=== PATIENT | female | born 1950 | race Caucasian/White ===

== ENCOUNTER → 2019-10-06 | Outpatient (CLI) | payer MEDICARE ==
--- NOTE | 2019-10-06 17:05 | KCIC ---
MR of the left shoulder HISTORY: Left shoulder pain. Progressive for 4 months. TECHNIQUE: Routine multiplanar sequences are obtained. FINDINGS: The acromioclavicular joint is intact. Rotator cuff tendinosis. No measurable rotator cuff defect or rupture although there is some ill-definition of articular and bursal tissue suggesting fraying. Subscapularis tendon intact. No significant subdeltoid bursal fluid. No significant glenohumeral joint effusion. Glenohumeral joint DJD with chondromalacia. Full-thickness cartilage loss at the inferior glenoid measures about 6 mm. Coronal series 6, image 9. Sublabral foramen at the anterosuperior labrum with a thick cordlike middle glenohumeral ligament, compatible with normal variants. No evidence of labral tear. Biceps tendon is intact. No acute fracture. No aggressive bone destruction. IMPRESSION: 1. Rotator cuff tendinosis. Ill-definition or fraying of the bursal articular surface but no measurable defect or rupture. 2. Glenohumeral joint DJD with chondromalacia. Full-thickness cartilage loss at the inferior glenoid. Electronically signed by: Farhan Aguilar MD (10/06/2019 5:02 PM) [facility]
== END | disposition home or self-care (01) ==
LOC: KCIC MRI 15:41
PROVIDERS: ATTEND Orthopaedic Surgery
DX: M19.012 Primary osteoarthritis, left shoulder (principal); M75.82 Other shoulder lesions, left shoulder; M94.212 Chondromalacia, left shoulder
CPT/HCPCS: 73221